=== PATIENT | male | born 1975 | race Caucasian/White ===

== ENCOUNTER 2024-10-20 18:41 | Emergency (ER) | payer BC, SELFPAY ==
[2024-10-20] VITALS (17 sets, daily range): BP systolic 108–133; BP diastolic 67–80; PULSE 48–72; RESP 16; TEMP 36.5; O2SAT 97–100; BMI 24.4
--- OUTSIDE RECORDS SUMMARY | 2024-10-20 18:43 | XMS_ITS | Data Portability ---
Author Organization [place] - [facility], [facility] Address [address] [place] [address] Assessment No assessment recorded. Plan of Treatment Reminders Order Date Submit Date Provider Last Modified By Organization Details Last Modified Time Details Appointments None record ed. Lab None record ed. Referral None record ed. Procedures None record ed. Surgeries None record ed. Imaging None record ed. Medication Orders None record ed. Patient TargetsNo targets recorded. Patient InstructionsNo instructions recorded. Reason for Referral None Reported. Results Created Date Observation Date Name Description Value Unit Range Abnormal Flag Note LastModifiedBy Organization Detail LastModifiedTime 11/03/19 24 11/04/2023 SPERM ATOZO A, POST VASEC MANUELITO spermatozoa, post vasectomy NONE SEEN none seen normal Not Available [facility] [address] [place], [address], 11/04/2023 07:26:42 11/03/1911/04/2023 SPERM ATOZO A, POST VASEC MANUELITO comment The semen sampl e was evalu ated using an uncen trifu ged speci men recom ltizy d by the [facility] ([facility]) Vasec manuelito Guide line (January 2012) Not Available [facility] [address] [place], [address], 11/04/2023 07:26:42 Result Notes None recorded. Procedures Surgical History Date Name Laterality Status Provider Name and Address Organization Details Recorded Time 3 TB Vasectomy completed Hector Crespo MD [address] [facility] [address] [facility], [place], [address], [facility] 07/26/2023 15:08:13 Imaging Results None recorded. Procedure Notes None recorded. Medical Equipment None Reported. Medications Name Sig Start Date Stop Date Status Note LastModified by Organization Details LastModified Time binaxnow cov kit home opal active Not Available Not Available Not Available azithromycin 250 mg tablet TAKE 2 TABLETS BY MOUTH FOR 1 DAY THEN TAKE 1 TABLET BY MOUTH DAILY FOR 4 DAYS active Not Available Not Available No t Available meloxicam 15 mg tablet active Not Available Not Available No t Available sildenafil (pulmonary hypertension) 20 mg tablet USE 2 TO 3 TABLETS BY MOUTH AT A TIME 1 TO 4 HOURS BEFORE SEXUAL ACTIVITY active Not Available Not Available No t Available QuickVue At-Home COVID-19 Test kit TEST DIRECTED TODAY active Not Available Not Available No t Available Vitals None Recorded Social History None recorded. Functional Status None recorded. Mental Status None recorded. Family History Nothing Reported. Medical History No medical history recorded. Past Encounters Encounter ID Performer Location Encounter Start Date Encounter Closed Date Diagnosis/Indication Diagnosis SNOMED-CT Code Diagnosis ICD10 Code Diagnosis Note [id number] Hector Crespo MD [facility] [address] [place] [address] [facility] [place] [address] 07/26/2023 14:11:48 08/04/2023 11:53:19 Male sterilization [id number] Z30.2 1. S/P Vasectomy - ice pack to scrotum (30 minutes on / 30 minutes off) for 24 hours - minimal activity for 48 hours- may shower after 24 hours - no tub baths or swimming for 2 weeks- may remove Tegaderm after 48 hours- Tylenol 500 mg Q 6 hrs prn- may use Ibuprofen 600 mg TID prn pain (72 hours after the procedure) - The patient is aware that he needs to use control until proven to be infertile. - F/U in 3 months with semen analysis Health Concerns Section Related Observation LastModified by Organization Detai ls LastModified Time None Recorded Concern Status LastModified by Organization Details LastModified Time None Recorded Advance Directives Directive None Recorded Payers Encounter Date Sequence Insurance Name Policy Number Policy Molina Covered Member ID Molina Member ID Guarantor Name 07/26/2023 1 [place] [id number] Mike Jay [id number] Mike Jay Notes Date Note Type Note Provider Name and Address Organization Details Recorded Time 07/26/2023 text/html 48 yo male prese nts to discuss permanent sterilization via vasectomy. He has been considering it for 710-11 years. He is - has 1 son (15 yr) - no control. He denies trouble with urination. He notes trouble with obtaining and maintaining erections for several years. He tried Viagra - with some success. 07/26/23 - He present for vasectomy - no change in history. Hector Crespo MD [address] [place] [address],[address], [place], [address], [facility] 07/26/2023 16:13:59
--- OUTSIDE RECORDS SUMMARY | 2024-10-20 18:43 | XMS_ITS | Clinical Summary ---
Author Organization [facility] Address [place], [place] [address] Care Team Providers Care Antique Collector Name Role Phone Amador Bray MD Unavailable [phone] Pcp, No Primary Care Provider Unavailabl e Allergies No known active allergies Medications sildenafiL, pulm.hypertension, (REVATIO) 20 mg tabletIndications: Male erectile dysfunction, unspecified USE 2 TO 3 TABLETS BY MOUTH AT A TIME 1 TO 4 HOURS BEFORE SEXUAL ACTIVITY 30 Tablet 11 1 Active diclofenac (VOLTAREN) 75 mg delayed-release tabletIndications: Lateral epicondylitis of right elbow Take 1 Tablet (75 mg) by mouth two times daily with meals. 60 Tablet 1 4 Active Active Problems No known active problems Resolved Problems Problem Noted Date Diagnosed Date Resolved Date Anxiety 06/07/2016 05/13/2019 Diarrhea 11/04/2015 05/13/2019 Overview (11/04/2015): Colonoscopy 10/2015 normal repeat at age 52. Immunizations Name Administration Dates Next Due COVID-19 vaccine (SmarTots NTEchometrix 30mcg/0.3mL) PF, MDV 09/06/2021 Influenza, IIV3 (Age >=3 years) 07/03/2014,07/02 Influenza, IIV4 07/07/2022,07/08/2021,08/04/2015 Influenza, IIV4 (=>6mos) MDV 07/09/2020,07/04/20 19 Influenza, Whole Virus 07/06/2017 Td (Age >=7 Years) 05/13/2019 Tdap 06/29/2007 Family History Medical History Relation Name Comments Good Health Father Heart Disease Maternal Grandfather CHF Heart Disease Maternal Grandmother CHF Other Maternal Grandmother GLAUCOM A Good Health Mother Good Health Sister Relation Name Status Comments Father Alive Maternal Grandfather Maternal Grandmother Mother Alive Sister Social History Tobacco Use Types Packs/Day Years Used Date Smoking Tobacco: Never Smokeless Tobacco: Never Tobacco Cessation:Counseling Given: Yes Alcohol Use Standard Drinks/Week Comments Yes 0 (1 standard drink = 0.6 oz pur e alcohol) occasional 1 x weekly PHQ-2 Answer Date Recorded PHQ-2 TOTAL SCORE 0 09/05/2022 Social Connections Answer Date Recorded Do you often feel lonely or isolated from those around you? 0 04/02/2024 Financial Resource Strain Answer Date R ecorded Difficulty of Paying Living Expenses 3 04/02/2024 Difficulty of Paying Living Expenses Not on file 04/02/2024 Food Insecurity Answer Date Recorded Do you worry your food will run out before you are able to buy more? 1 04/02/2024 Transportation Needs Answer Date Record ed Does lack of transportation keep you from medica l appointments? 1 04/02/2024 Does lack of transportation keep you from work, meetings or getting things that you need? 1 04/02/2024 Housing Stability Answer Date Recorded What is your housing situation today? 1 04/02/2024 Utilities Answer Date Recorded Do you have trouble paying f or utilities (for example, heat, electricity, water, phone)? 1 04/02/2024 Sex and Gender Information Value Date Recorded Sex Assigned at Not on file Legal Sex Male 7:19 AM MEDICAL ADMINISTRATIVE SPECIALIST Gender Identity Not on file Sexual Orientation Not on file Occupation Industry Job Start Date Job End Date Not on file Not on file Not on file Not on file Obstetrics History Last Filed Vital Signs Vital Sign Reading Time Taken Comments Blood Pressure 114/72 04/02/2024 2:00 PM CDT Pulse 70 04/02/2024 2:00 PM CDT Temperature 36.8 C (98.3 F) 09/12/2022 1:50 PM MEDICAL ADMINISTRATIVE SPECIALIST Respiratory Rate 16 01/17/2012 7:40 AM CDT Oxygen Saturation 98% 04/02/2024 2:00 PM CDT Inhaled Oxygen Concentration - - Weight 87.1 kg (192 lb) 04/02/2024 2:00 PM CDT Height 188 cm (6' 2) 09/05/2022 1:03 PM MEDICAL ADMINISTRATIVE SPECIALIST Body Mass Index 24.65 09/05/2022 1:03 PM MEDICAL ADMINISTRATIVE SPECIALIST Plan of Treatment Health Maintenance Due Date Last Done Comments HIV for age 15-65 1992 Hepatitis C screening for age 18-79 1995 BMI (ht and wt on same day) for age 18+ 09/05/2023 09/05/2022, 05/13/2019, 01/19/2017, Additional history exists Depression screening for age 12+ 09/05/2023 09/05/2022, 05/14/2019, 05/13/2019, Additional history exists Lipids for age 45-75 05/13/2024 05/13/2019, 02/20/2013, 06/29/2007 COVID-19 vaccine series ( season) 2024 07/07/2022, 09/06/2021, 01/28/2021, Additional history exists Influenza for age 9-49 05/26/2024 , 07/08/2021, 07/09/2020, Additional history exists Colonoscopy through age 75 11/03/2025 11/03/2015 Tetanus booster 05/13/2029 05/13/2019, 06/29/2007 Tdap Completed 06/29/2007 Pneumococcal series for age 6-49 Aged Out No longer eligible based on patient's age to complete this topic Procedures Procedure Name Priority Date/Time Associated Diagnosis Comments LIPID PANEL W REFLEX MEASURED LDL Routine 05/13/2019 9:50 AM CDT Lipid screening from Last 3 Months or Most Recently Relevant to Health Maintenance Results * LIPID PANEL W REFLEX MEASURED LDL (05/13/2019 9:50 AM CDT) CHOLESTEROL,TOTAL 190 100 - 199 mg/dL 05/13/2019 5:31 PM CDT [facility] TRIGLYCERIDES 100 <150 mg/dL 05/13/2019 5:31 PM CDT [facility] HDL CHOLESTEROL 62 >40 mg/dL 9 5:31 PM CDT [facility] NON-HDL CHOLESTEROL 128 <145 mg/dl 05/13/2019 5:31 PM CDT [facility] CHOL/HDL RATIO 3.06 <4.50 05/13/2019 5:31 PM CDT [facility] LDL CHOLESTEROL 108 <=130 mg/dL 05/13/2019 5:31 PM CDT [facility] PROVIDER ORDERED STATUS RANDOM 05/13/2019 5:31 PM CDT [facility] Blood BLOOD SPECIMEN / Unknown Venipuncture / Unknown 05/13/2019 9:50 AM CDT 05/13/2019 9:51 AM CDT us Markel Petersen MD CHEMISTRY Final Re sult [facility] [address] [place] [address], from Last 3 Months or Most Recently Relevant to Health Maintenance Insurance Advance Directives * Full Code (Latest Code Status on File) Date Activated Date Inactivated Comments 01/16/2012 4:17 PM 01/17/2012 3:18 PM * Full Code Date Activated Date Inactivated Comments 01/16/2012 1:11 PM 01/16/2012 4:17 PM Care Teams Antique Collector Relationship Specialty Start Date End Date Pcp, No . PCP - General 12/05/22 Amador Bray MD Neurosurgery Neurosurgery 01/09/12
--- NOTE | 2024-10-20 18:52 | ED.GENADULT ---
HPI - General Adult General Date Seen: 10/20/24 Chief complaint: Chest Pain Stated complaint: Left side Chest pain, shoulder, back pain. Time Seen by Provider: 10/20/24 18:48 History of Present Illness HPI narrative: 49 year old previously healthy male presenting to the ER today with chest discomfort. He started having symptoms of discomfort in his chest yesterday afternoon while he was resting on the couch. He 1st started symptoms with a mild ache in his left shoulder blade that then spread to his left top of her shoulder and up his left neck. It was present for several hours yesterday. He thought that he probably slept wrong on the couch. He has not had any recent injury, no recent strenuous activity, or other known trigger for the pain. He was able to go to sleep last night but the pain was still present when he went to sleep. When he woke up this morning the pain was gone but then throughout the day today he started having some mild discomfort in his left lower chest below the pectoral and sometimes down the lower rib. These have been present off and on throughout the day. There is no clear pattern. No relationship to laying down or sitting up or position. No change with activity or rest. No change with eating. No other symptoms really. No nausea. No dizzy spells or palpitation. He just feeling a little bit run down to maybe a for appetite. No fever. No cough. No abdominal pain. No back or shoulder blade pain today. He thinks that his pain might just be anxiety but he does not really have any stressors going on in his life. However, since he is a single father, he came to the ER just to be checked out. He says his heart is too important to take chances with. He has not had any recent travel or immobilization. No history of DVT/PE. No family history of DVT or PE. No family history of premature coronary artery disease. He is a nonsmoker. No history of asthma. Related Data Home Medications ?Medication ?Instructions ?Recorded ?Confirmed No Known Home Medications 09/04/22 09/04/22 Allergies Allergy/AdvReac Type Severity Reaction Status Date / Time No Known Drug Allergies Allergy Verified 09/04/22 10:34 [facility] Medical History (Updated 10/20/24 @ 21:16 by Mamadou Wilde MD) Sore throat ?J02.9 - Acute pharyngitis, unspecified (ICD-10) Social History Smoking Status: Never smoker Do you use any of these nicotine containing products: None Second hand tobacco smoke exposure: No How often do you have a drink containing alcohol: monthly or less AUDIT-C Alcohol total score: 1 Non-prescribed substance use: denies use Exam Narrative: Exam Narrative: Constitutional: Appears well-developed and well-nourished. Alert. Conversant. Non toxic. HENT: Head: Atraumatic. Nose: Nose normal. Mouth/Throat: Oral mucosa is clear and moist. no trismus. Pharynx normal. Tonsils symmetric. No tonsillar enlargement, erythema, or exudate. Eyes: Conjunctivae normal. EOM normal. Pupils equal, round, and reactive to light. No scleral icterus. Neck: Normal range of motion. Neck supple. No tracheal deviation present. No JVD Cardiovascular: Normal rate, regular rhythm. No gallop. No friction rub. No murmur heard. Symmetric radial artery pulses Pulmonary/Chest: Effort normal. No stridor. No respiratory distress. No wheezes. No rales. No rhonchi . No tenderness. No rash or shingles. Abdominal: Soft. Bowel sounds normal. No distension. No mass. No tenderness. No rebound. No guarding. No CVA tenderness Musculoskeletal: RUE: Normal range of motion. No tenderness. No deformity LUE: Normal range of motion. No tenderness. No deformity RLE: Normal range of motion. No edema. No tenderness. No deformity LLE: Normal range of motion. No edema. No tenderness. No deformity Neurological: Alert and oriented to person, place, and time. Normal strength. CN II-VII intact. No sensory deficit. GCS eye subscore is 4. GCS verbal subscore is 5. GCS motor subscore is 6. Normal coordination Skin: Skin is warm and dry. No rash noted. No pallor. Normal capillary refill. Psychiatric: Normal mood. Normal affect. Const: Vital Signs, click to edit/add: Vital Signs - 24 hr 10/20/24 18:52 10/20/24 18:54 10/20/24 19:00 Temperature 97.7 F Pulse Rate 57 L 72 Pulse Rate [Pulse Oximeter] 69 Respiratory Rate 16 Blood Pressure Blood Pressure [Le ft Upper Arm] 133/80 Pulse Oximetry 98 100 100 Oxygen Delivery Me thod Room Air Room Air 10/20/24 19:15 10/20/24 19:18 10/20/24 19:30 Temperature Pulse Rate 54 L 68 Pulse Rate [Pulse Oximeter] Respiratory Rate Blood Pressure Blood Pressure [Le ft Upper Arm] Pulse Oximetry 97 97 99 Oxygen Delivery Me thod 10/20/24 19:45 10/20/24 20:00 10/20/24 20:15 Temperature Pulse Rate 60 51 L 57 L Pulse Rate [Pulse Oximeter] Respiratory Rate Blood Pressure Blood Pressure [Le ft Upper Arm] Pulse Oximetry 98 99 99 Oxygen Delivery Me thod Room Air 10/20/24 20:20 10/20/24 20:30 10/20/24 20:31 Temperature Pulse Rate 48 L 55 L 52 L Pulse Rate [Pulse Oximeter] Respiratory Rate 16 Blood Pressure 109/67 108/68 Blood Pressure [Le ft Upper Arm] Pulse Oximetry 99 99 99 Oxygen Delivery Me thod 10/20/24 20:45 10/20/24 21:00 10/20/24 21:01 Temperature Pulse Rate 54 L 55 L 58 L Pulse Rate [Pulse Oximeter] Respiratory Rate 16 Blood Pressure 110/76 Blood Pressure [Le ft Upper Arm] Pulse Oximetry 99 100 100 Oxygen Delivery Me thod Room Air 10/20/24 21:02 10/20/24 21:15 Temperature Pulse Rate 58 L 57 L Pulse Rate [Pulse Oximeter] Respiratory Rate Blood Pressure Blood Pressure [Le ft Upper Arm] Pulse Oximetry 100 100 Oxygen Delivery Me thod Course Vital Signs Vital signs: Initial Vital Signs Temperature 97.7 F 10/20/24 18:52 Temperature Source Temporal Artery Scan 10/20/24 18:52 Pulse Rate 69 10/20/24 18:52 Respiratory Rate 16 10/20/24 18:52 Blood Pressure 133/80 10/20/24 18:52 Blood Pressure Mean 97 10/20/24 18:52 Pulse Oximetry 98 10/20/24 18:52 Oxygen Delivery Method Room Air 10/20/24 18:52 Vital Signs Temperature 97.7 F 10/20/24 18:52 Pulse Rate 69 10/20/24 18:52 Respiratory Rate 16 10/20/24 18:52 Blood Pressure 133/80 10/20/24 18:52 Pulse Oximetry 98 10/20/24 18:52 Oxygen Delivery Method Room Air 10/20/24 18:52 Temperature 97.7 F 10/20/24 18:52 Pulse Rate 57 L 10/20/24 21:15 Respiratory Rate 16 10/20/24 21:01 Blood Pressure 110/76 10/20/24 21:01 Pulse Oximetry 100 10/20/24 21:15 Oxygen Delivery Method Room Air 10/20/24 21:01 Medications Administered Medications: Discontinued Medications Generic Name Dose Route Start Last Admin Trade Name Milana PRN Reason Stop Dose Admin Aspirin 162 mg 10/20/24 19:12 10/20/24 19:20 Aspirin 81 Mg Tab.Chew PO 10/20/24 19:13 162 mg ONCE ONE Administration Medical Decision Making MDM Narrative Medical decision making narrative: This patient presents to the ER today for evaluation of chest pain that started in his left scapula yesterday and is now predominantly in the left anterior hemithorax today. Differential was broad. No evidence of palpitations, syncope or other cardiac dysrhythmia. We considered possible ACS, however workup with EKG and troponin is negative. Since he has had intermittent pain today we did check arrival and 2 hour delta troponins and they are both undetectable. HEART score is 1. Given time since onset of symptoms, I do not think the patient needs to be admitted for further sets of enzymes. Would recommend outpatient follow-up with PCP for recheck within the next 3-5 days. EKG shows no evidence for pericarditis. Clinical presentation not suggestive of myocarditis. Chest x-ray shows no evidence for pneumonia, pneumothorax, pulmonary edema, pleural effusion, rib fracture, cardiomegaly. Mediastinum is normal on the x-ray. The patient has no ripping or tearing pain through to the back and has symmetric pulses on exam, no other acute neuro findings so I doubt aortic dissection. Aortic dissection risk score is low. Risk of radiation and contrast exposure would outweigh the benefit of CT angiogram. We considered PE for this patient. Screening D-dimer is normal. No wheezing or bronchospasm to suggest COPD/asthma. No signs of chest wall cellulitis, shingles, injury. With reasonable clinical confidence, I think the patient is safe for outpatient follow up. Discussed return precautions. Questions answered. Patient voices comfort with the plan. Lab Data Labs: Lab Results 10/20/24 10/20/24 10/20/24 Range/Units 19:03 19:05 19:13 WBC 4.85 (4.50-11.00) K/uL RBC 4.58 (4.30-5.90) m/uL Hgb 13.7 (13.5-17.5) gm/dL Hct 41.1 (37.0-53.0) % MCV 90 (80-100) fL MCH 30 (26-34) pg MCHC 33 (32-36) gm/dL RDW Coeff of Zandra 11.9 (11.5-15.5) % Plt Count 211 (140-440) K/uL Neut % (Auto) 44.6 (42.0-72.0) % Lymph % (Auto) 41.4 (20-44) % Menard % (Auto) 10.7 (0.0-11.0) % Eos % (Auto) 2.3 (0.0-7.0) % Baso % (Auto) 1.0 (0.0-3.0) % Neut # (Auto) 2.16 (1.7-7.0) K/uL Lymph # (Auto) 2.01 (0.90-2.90) K/uL Menard # (Auto) 0.50 (0.00-0.90) K/UL Eos # (Auto) 0.11 (0.00-0.50) K/uL Baso # (Auto) 0.05 (0.00-0.30) K/uL Abs Immat Gran (auto) 0.00 (0.00-0.30) K/uL Imm/Tot Granulo (auto) 0.0 % D-Dimer Quant (PE/DVT) 0.15 (0.00-0.50) ug/ml Sodium 140 (135-149) mmol/L Potassium 3.6 (3.6-5.1) mmol/L Chloride 104 (96-114) mmol/L Carbon Dioxide 28 (20-32) mmol/L Anion Gap 8 (7-15) mEq/L BUN 14 (5-24) mg/dL Creatinine 1.0 (0.5-1.5) mg/dL Estimated Creat Clear 106.18 Estimated GFR 93 ml/min Glucose 96 (60-115) mg/dL Calcium 9.5 (8.4-10.6) mg/dL POC Troponin I 0.00 L 0.00 L (0.01-0.04) ng/ml 10/20/24 Range/Units 21:05 WBC (4.50-11.00) K/uL RBC (4.30-5.90) m/uL Hgb (13.5-17.5) gm/dL Hct (37.0-53.0) % MCV (80-100) fL MCH (26-34) pg MCHC (32-36) gm/dL RDW Coeff of Zandra (11.5-15.5) % Plt Count (140-440) K/uL Neut % (Auto) (42.0-72.0) % Lymph % (Auto) (20-44) % Menard % (Auto) (0.0-11.0) % Eos % (Auto) (0.0-7.0) % Baso % (Auto) (0.0-3.0) % Neut # (Auto) (1.7-7.0) K/uL Lymph # (Auto) (0.90-2.90) K/uL Menard # (Auto) (0.00-0.90) K/UL Eos # (Auto) (0.00-0.50) K/uL Baso # (Auto) (0.00-0.30) K/uL Abs Immat Gran (auto) (0.00-0.30) K/uL Imm/Tot Granulo (auto) % D-Dimer Quant (PE/DVT) (0.00-0.50) ug/ml Sodium (135-149) mmol/L Potassium (3.6-5.1) mmol/L Chloride (96-114) mmol/L Carbon Dioxide (20-32) mmol/L Anion Gap (7-15) mEq/L BUN (5-24) mg/dL Creatinine (0.5-1.5) mg/dL Estimated Creat Clear Estimated GFR ml/min Glucose (60-115) mg/dL Calcium (8.4-10.6) mg/dL POC Troponin I 0.00 L (0.01-0.04) ng/ml Imaging Data Chest x-ray: Attestation: I have reviewed the pertinent imaging results. Radiologist's impression: IMPRESSION: No acute or significant findings. ECG Data Attestation: I personally reviewed and interpreted this ECG as follows: Interpretation: Normal sinus rhythm with sinus arrhythmia Rate: 61 MI: 160 QRS axis: Normal QRS axis. No pathologic Q-waves ST segment/T wave: No ST segment elevation or depression. Artifact in leads V1 and V2. QTc: 410 Discharge Plan Discharge Clinical Impression: Chest pain Patient Disposition: Home, Self-Care Condition: Stable Instructions: Chest Pain (DC) Additional Instructions: As we discussed, so for your workup looks reassuring. No sign of heart attack or other serious problem at this point. However, not all medical condition show up during 1 ER visit. Please monitor your symptoms carefully and if you have worsening pain, trouble breathing, more palpitations, or any problems, please come back to the ER right away. Even if you are getting better, please recheck with your regular doctor within 3-5 days. Prescriptions: No Action No Known Home Medications Follow Up/Referrals: Provider,Not a Local [Primary Care Provider] - Stand Alone Forms: [employer] Info Instructions
--- NOTE | 2024-10-20 19:12 | CRLHL7_ITS ---
For Patients: As a result of the Century Cures Act, medical imaging exams and procedure reports are released immediately into your electronic medical record. You may view this report before your referring provider. If you have questions, please contact your health care provider. INDICATION: Chest pain. TECHNIQUE: Chest 2 views. COMPARISON: None. FINDINGS: Cardiovascular and mediastinum: Heart size and vasculature are normal in caliber and appearance. Lungs and pleural spaces: Lungs are clear. No sign of infiltrate or mass. No sign of pleural effusion. No pneumothorax. Bones and soft tissues: No significant findings. IMPRESSION: No acute or significant findings. Dictated by Hernando Villafana MD @ 10/20/2024 7:50:27 PM (Electronically Signed)
[2024-10-20] MEDS: ASPIRIN 81 MG TAB.CHEW 162 MG PO (19:20)
--- OUTSIDE RECORDS SUMMARY | 2024-10-20 19:33 | XMS_ITS | Clinical Summary ---
Author Organization [employer] [facility] Address [place], [place] [address] Care Team Providers Care Unhairer Name Role Phone Amador Bray MD Unavailable Pcp, No Primary Care Provider Unavailabl e [...] Name Administration Dates Next Due COVID-19 vaccine ([employer] 30mcg/0.3mL) PF, MDV 09/06/2021 Influenza, IIV3 (Age [...] on file Legal Sex Male 7:19 AM [employer] Gender Identity Not on file Sexual Orientation Not on file Occupation Industry Job Start Date Job End Date Not on file Not on file Not on file Not on file Obstetrics History Last Filed Vital Signs Vital Sign Reading Time Taken Comments Blood Pressure 114/72 04/02/2024 2:00 PM CDT Pulse 70 04/02/2024 2:00 PM CDT Temperature 36.8 C (98.3 F) 09/12/2022 1:50 PM [employer] Respiratory Rate 16 01/17/2012 7:40 AM CDT Oxygen Saturation 98% 04/02/2024 2:00 PM CDT Inhaled Oxygen Concentration - - Weight 87.1 kg (192 lb) 04/02/2024 2:00 PM CDT Height 188 cm (6' 2) 09/05/2022 1:03 PM [employer] Body Mass Index 24.65 09/05/2022 1:03 PM [employer] Plan of Treatment Health Maintenance Due Date [...] - 199 mg/dL 05/13/2019 5:31 PM CDT [facility] TRIGLYCERIDES 100 <150 mg/dL 05/13/2019 5:31 PM CDT [facility] HDL CHOLESTEROL 62 >40 mg/dL 9 5:31 PM CDT [facility] NON-HDL CHOLESTEROL 128 <145 mg/dl 05/13/2019 5:31 PM CDT [facility] CHOL/HDL RATIO 3.06 <4.50 05/13/2019 5:31 PM CDT [facility] LDL CHOLESTEROL 108 <=130 mg/dL 05/13/2019 5:31 PM CDT [facility] PROVIDER ORDERED STATUS RANDOM 05/13/2019 5:31 PM CDT [facility] Blood BLOOD SPECIMEN / Unknown Venipuncture / Unknown 05/13/2019 9:50 AM CDT 05/13/2019 9:51 AM CDT us Markel Petersen MD CHEMISTRY Final Re sult [facility] [address] [place] [address], from Last 3 Months or Most Recently Relevant to Health Maintenance Insurance Advance Directives * Full Code (Latest Code Status on File) Date Activated Date Inactivated Comments 01/16/2012 4:17 PM 01/17/2012 3:18 PM * Full Code Date Activated Date Inactivated Comments 01/16/2012 1:11 PM 01/16/2012 4:17 PM Care Teams Unhairer Relationship Specialty Start Date End Date Pcp, No . PCP - General 12/05/22 Amador Bray MD Neurosurgery Neurosurgery 01/09/12
[2024-10-20 19:35] LABS: Basophils Absolute Auto 0.05 K/uL (0.00-0.30); Eosinophils Absolute Auto 0.11 K/uL (0.00-0.50); Eosinophils Percent Auto 2.3 % (0.0-7.0); Hematocrit 41.1 % (37.0-53.0); Hemoglobin* 13.7 gm/dL (13.5-17.5); Lymphocytes Absolute Auto 2.01 K/uL (0.90-2.90); Lymphocytes Percent Auto 41.4 % (20-44); Mean Corpuscular HGB Conc 33 gm/dL (32-36); Mean Corpuscular Hemoglobin 30 pg (26-34); Mean Corpuscular Volume 90 fL (80-100); Monocytes Percent Auto 10.7 % (0.0-11.0); Neutrophils Absolute Auto 2.16 K/uL (1.7-7.0); Neutrophils Percent Auto 44.6 % (42.0-72.0); Platelet Count* 211 K/uL (140-440); RDW Coefficient of Variation % 11.9 % (11.5-15.5); Red Blood Count 4.58 m/uL (4.30-5.90); White Blood Count* 4.85 K/uL (4.50-11.00)
[2024-10-20 19:37] LABS: Slide Review Reflex No
[2024-10-20 19:45] LABS: Chloride* 104 mmol/L (96-114); Potassium* 3.6 mmol/L (3.6-5.1); Sodium* 140 mmol/L (135-149)
[2024-10-20 19:48] LABS: Anion Gap 8 mEq/L (7-15); Blood Urea Nitrogen* 14 mg/dL (5-24); Calcium* 9.5 mg/dL (8.4-10.6); Carbon Dioxide* 28 mmol/L (20-32); Est. Creatinine Clearance* 106.18; Estimated Glomerular Filt Rate 93 ml/min; Glucose* 96 mg/dL (60-115)
[2024-10-20 19:53] LABS: D Dimer Quantitative* 0.15 ug/ml (0.00-0.50)
== END 2024-10-20 21:31 | disposition home or self-care (01) ==
PROVIDERS: Emergency Provider Emergency Medicine
DX: R07.9 Chest pain, unspecified (principal)
CPT/HCPCS: 36415; 71046; 80048; 84484; 85025; 85379; 93005; 94761; 99283; 99284; 99285; A9270